=== PATIENT | male | born 1960 | race Two or more races ===

== ENCOUNTER → 2017-09-25 | Outpatient (CLI) | payer BC | END | disposition home or self-care (01) | LOC: HKI 11:39 | DX: M17.11 Unilateral primary osteoarthritis, right knee (principal); M23.221 Derangement of posterior horn of medial meniscus due to old tear or injury, right knee | CPT/HCPCS: Z7500 ==

== ENCOUNTER → 2017-11-03 | Outpatient (CLI) | payer BC | END | disposition home or self-care (01) | LOC: HKI 10:21 | DX: M25.561 Pain in right knee (principal) | CPT/HCPCS: 20610 ==

== ENCOUNTER → 2018-05-21 | Outpatient (CLI) | payer BC | END | disposition home or self-care (01) | LOC: HKI 09:13 | DX: M25.561 Pain in right knee (principal); M25.562 Pain in left knee; M17.0 Bilateral primary osteoarthritis of knee | CPT/HCPCS: 73564; 73564-50 ==

== ENCOUNTER → 2018-12-26 | Outpatient (CLI) | payer BC | END | disposition home or self-care (01) | LOC: HKI 09:40 | DX: M17.11 Unilateral primary osteoarthritis, right knee (principal); M21.161 Varus deformity, not elsewhere classified, right knee | CPT/HCPCS: 20610 ==